=== PATIENT | female | born 1970 | race Caucasian/White ===

== ENCOUNTER 2020-11-11 18:06 | Emergency (ER) | payer OTHER ==
[~2020-11-11 18:06] MED LIST: BACTROBAN OINT22 GM EXT; NAPROSYN500 MG PO; NORCO 7.5-3251 EACH PO; OXACILLIN SODIUM2 GM IV; SYMBICORT 160-1 INHA INH; VENTOLIN HFA 66.7 GM INH
[2020-11-11 19:48] LABS: HEMOGLOBIN 12.7 gm/dl (12.3-15.3); RED BLOOD COUNT 4.12 M/UL (4.00-5.10); WHITE BLOOD COUNT 9.6 K/UL (4.5-11.0)
[2020-11-11 20:20] LABS: BUN/CREATININE RATIO 14 (0-10)
[2020-11-11] MEDS ORDERED: LASIX40 MG PO (21:52)
[2020-11-11] MEDS ORDERED: K-DUR TAB 20 M20 MEQ PO (21:52)
== END 2020-11-11 22:05 | disposition home or self-care (01) ==
LOC: ER1 18:06
PROVIDERS: Physician Assistant
DX: I50.9 Heart failure, unspecified (principal); K80.80 Other cholelithiasis without obstruction; B19.20 Unspecified viral hepatitis C without hepatic coma; F17.200 Nicotine dependence, unspecified, uncomplicated; Z90.710 Acquired absence of both cervix and uterus; Z98.51 Tubal ligation status; Z53.20 Procedure and treatment not carried out because of patient's decision for unspecified reasons
CPT/HCPCS: 71045; 80053; 80307; 81001; 82550; 82553; 83690; 83874; 83880; 84484; 85025; 93005; 96374; 99285; J1940

== ENCOUNTER 2021-10-20 15:29 | Inpatient (IN) | payer OTHER ==
[~2021-10-20] VITALS: Ht 170.2 cm; Wt 59.0 kg
[~2021-10-20 15:29] MED LIST changes: +K-DUR TAB 20 M20 MEQ PO; +LASIX40 MG PO
[2021-10-20 17:15] LABS: HEMOGLOBIN 15.1 gm/dl (12.3-15.3); RED BLOOD COUNT 4.92 M/UL (4.00-5.10); WHITE BLOOD COUNT 11.2 K/UL (4.5-11.0)
[2021-10-20 17:44] LABS: BUN/CREATININE RATIO 12 (0-10)
[2021-10-21 03:27] LABS: HEMOGLOBIN 13.5 gm/dl (12.3-15.3); RED BLOOD COUNT 4.49 M/UL (4.00-5.10)
[2021-10-21 03:46] LABS: BUN/CREATININE RATIO 13 (0-10)
--- NOTE | 2021-10-21 04:00 | NUR ---
SPOKE WITH ELECTION ASSISTANT, AZEEM, REGARDING PT HAVING ORDERS FOR PCU. ELECTION ASSISTANT STATED THAT WAS OKAY WITH PT COMING TO [facility].
--- NOTE | 2021-10-21 17:48 | NUR ---
PATIENT IS ASYMPTOMATIC BUT HAS LOW BP. 89/55. SEVERAL CHECKS WERE MADE WITH ELECTRONIC AND MANUAL BP MACHINES BEFORE PROVIDER WAS NOTIFIED FOR THE SECOND TIME. PROVIDER STATED THAT IF PATIENT WAS INDEED ASYMPTOMAIC AND WASN'T EXPERINCING AND DIZZYNESS OR LIGHTHEADEDNESS WE WOUDL JUST WATCH HER AND RECHECK IN ONE HOUR. WILL CONTINUE TO MONITOR.
--- NOTE | 2021-10-21 21:30 | NUR ---
PT BEING VERY HOSTILE WITH RN AND LAMINATED PLASTICS ASSEMBLER AND GLUER REGARDING IV PAIN MEDICATION. PT DEMANDING IV PAIN MEDICATION AND REFUSING TO TAKE TAKE SCHEDULED MEDICATIONS WITHOUT RECEIVING IV PAIN MEDICATION. INFORMED PT THAT HER BLOOD PRESSURE WAS TOO LOW TO RECEIVE IV PAIN MEDICATION.
--- NOTE | 2021-10-22 06:18 | NUR ---
PT BEING VERY HOSTILE WITH RN REGARDING IV PAIN MEDICATION. I INFORMED PT THAT I WOULD RECHECK HER BLOOD PRESSURE AND IF BLOOD PRESSURE WAS WITHIN NORMAL LIMITS I WOULD GIVE HER PAIN MEDICATION. PT BECAME VERY UPSET AND STARTED DEMANDING THAT I STOP HER IV INFUSION OF ZOSYN. PT STATING THAT IF SHE COULD NOT GET HER IV PAIN MEDICATION THEN SHE WOULD LEAVE. PT REFUSING TO ALLOW ME TO CONTINUE HER ZOSYN IV.
[2021-10-22 06:57] LABS: HEMOGLOBIN 12.7 gm/dl (12.3-15.3); RED BLOOD COUNT 4.22 M/UL (4.00-5.10)
[2021-10-22 07:02] LABS: WHITE BLOOD COUNT 5.3 K/UL (4.5-11.0)
[2021-10-23 06:10] LABS: HEMOGLOBIN 12.3 gm/dl (12.3-15.3); RED BLOOD COUNT 4.08 M/UL (4.00-5.10); WHITE BLOOD COUNT 5.9 K/UL (4.5-11.0)
[2021-10-23 06:32] LABS: BUN/CREATININE RATIO 18 (0-10)
[2021-10-23] MEDS ORDERED: ASPIRIN EC81 MG PO (11:32)
[2021-10-23] MEDS ORDERED: LISINOPRIL5 MG PO (11:32)
[2021-10-23] MEDS ORDERED: ATORVASTATIN CA10 MG PO (11:32)
[2021-10-23] MEDS ORDERED: LOPRESSOR 25 MG25 MG PO (11:32)
[2021-10-23] MEDS ORDERED: FUROSEMIDE20 MG PO (11:32)
== END 2021-10-23 13:46 | disposition home or self-care (01) | DRG 292 ==
LOC: ER1 15:29 → MED SURG 4 18:54 → CDU 18:54 → MED SURG 4 10-21 03:05
PROVIDERS: Emergency Medicine; Internal Medicine; Physician Assistant; ADMIT Internal Medicine
PROC: B24BZZ4 Ultrasonography of Heart with Aorta, Transesophageal (ICD-10-PCS; principal; 2021-10-21)
DX: I50.23 Acute on chronic systolic (congestive) heart failure (principal); E87.1 Hypo-osmolality and hyponatremia; N39.0 Urinary tract infection, site not specified; Z20.822 Contact with and (suspected) exposure to COVID-19; B18.2 Chronic viral hepatitis C; F17.200 Nicotine dependence, unspecified, uncomplicated; F12.10 Cannabis abuse, uncomplicated; E87.6 Hypokalemia; I08.1 Rheumatic disorders of both mitral and tricuspid valves; I25.5 Ischemic cardiomyopathy; J44.9 Chronic obstructive pulmonary disease, unspecified; I27.20 Pulmonary hypertension, unspecified; Z90.710 Acquired absence of both cervix and uterus; Z98.51 Tubal ligation status; Z82.49 Family history of ischemic heart disease and other diseases of the circulatory system; Z79.899 Other long term (current) drug therapy; Z91.14 Patient's other noncompliance with medication regimen; Z88.8 Allergy status to other drugs, medicaments and biological substances; Z79.82 Long term (current) use of aspirin
CPT/HCPCS: ECHO; 36415; 71045; 71046; 80048; 80053; 80307; 81001; 82550; 82553; 83036; 83540; 83550; 83605; 83735; 83874; 83880; 84100; 84439; 84443; 84484; 85025; 85027; 85379; 85652; 86140; 87040; 93005; 93306; 96374; 99285; G0378; J1650; J2270; J2405; J2543; Q9967; U0002

== ENCOUNTER 2022-05-19 21:00 | Observation (INO) | payer OTHER ==
[~2022-05-19] VITALS: Ht 170.2 cm; Wt 67.6 kg
[~2022-05-19 21:00] MED LIST changes: +ASPIRIN EC81 MG PO; +ATORVASTATIN CA10 MG PO; +FUROSEMIDE20 MG PO; +LISINOPRIL5 MG PO; +LOPRESSOR 25 MG25 MG PO
[2022-05-19 21:31] LABS: RED BLOOD COUNT 4.11 M/UL (4.00-5.10)
[2022-05-21 06:51] LABS: HEMOGLOBIN 14.3 gm/dl (12.3-15.3)
[2022-05-21 06:52] LABS: RED BLOOD COUNT 4.56 M/UL (4.00-5.10)
[2022-05-21 07:01] LABS: BUN/CREATININE RATIO 27 (0-10)
[2022-05-21] MEDS ORDERED: METOPROLOL SUCC25 MG PO (13:53)
[2022-05-21] MEDS ORDERED: BUMETANIDE1 MG PO (13:53)
[2022-05-21] MEDS ORDERED: KLOR-CON M2020 MEQ PO (13:53)
[2022-05-21] MEDS ORDERED: ALDACTONE 25MG25 MG PO (13:53)
== END 2022-05-21 15:16 | disposition home or self-care (01) ==
LOC: ER1 21:00 → M/S 05-20 00:04 → CDU 05-20 00:04 → M/S 05-20 09:34
PROVIDERS: Emergency Medicine; Internal Medicine; ADMIT Internal Medicine
DX: I11.0 Hypertensive heart disease with heart failure (principal); I50.43 Acute on chronic combined systolic (congestive) and diastolic (congestive) heart failure; I42.0 Dilated cardiomyopathy; I08.1 Rheumatic disorders of both mitral and tricuspid valves; I27.20 Pulmonary hypertension, unspecified; J44.9 Chronic obstructive pulmonary disease, unspecified; F17.210 Nicotine dependence, cigarettes, uncomplicated; F12.10 Cannabis abuse, uncomplicated; R00.0 Tachycardia, unspecified; N28.9 Disorder of kidney and ureter, unspecified; Z91.14 Patient's other noncompliance with medication regimen; Z86.79 Personal history of other diseases of the circulatory system; Z82.49 Family history of ischemic heart disease and other diseases of the circulatory system; Z79.82 Long term (current) use of aspirin; Z79.899 Other long term (current) drug therapy; Z20.822 Contact with and (suspected) exposure to COVID-19
CPT/HCPCS: ECHO; 36415; 71045; 71046; 80048; 80053; 80307; 81001; 82550; 82553; 83880; 84439; 84443; 84484; 85025; 93005; 93306; 94640; 94664; 94760; 96372; 96374; 96375; 96376; 99285; G0378; J1160; J1650; U0002

== ENCOUNTER 2022-06-06 12:52 | Inpatient (IN) | payer OTHER ==
[~2022-06-06] VITALS: Ht 170.2 cm; Wt 76.5 kg
[~2022-06-06 12:52] MED LIST changes: +ALDACTONE 25MG25 MG PO; +BUMETANIDE1 MG PO; +KLOR-CON M2020 MEQ PO; +METOPROLOL SUCC25 MG PO
[2022-06-06 13:58] LABS: RED BLOOD COUNT 3.91 M/UL (4.00-5.10); WHITE BLOOD COUNT 8.8 K/UL (4.5-11.0)
[2022-06-06 14:21] LABS: BUN/CREATININE RATIO 24 (0-10)
[2022-06-07 06:21] LABS: HEMOGLOBIN 13.6 gm/dl (12.3-15.3)
[2022-06-07 06:51] LABS: RED BLOOD COUNT 4.4 M/UL (4.00-5.10); WHITE BLOOD COUNT 14.2 K/UL (4.5-11.0)
[2022-06-08 07:39] LABS: HEMOGLOBIN 12.1 gm/dl (12.3-15.3); WHITE BLOOD COUNT 13.6 K/UL (4.5-11.0)
[2022-06-08 07:43] LABS: RED BLOOD COUNT 3.93 M/UL (4.00-5.10)
[2022-06-09 06:44] LABS: HEMOGLOBIN 13.2 gm/dl (12.3-15.3); RED BLOOD COUNT 4.18 M/UL (4.00-5.10); WHITE BLOOD COUNT 12.5 K/UL (4.5-11.0)
[2022-06-09 17:06] LABS: BUN/CREATININE RATIO 46 (0-10)
--- NOTE | 2022-06-09 19:08 | NUR ---
PT HAS HAD SEVERAL RUNS OF NSVT THROUGHOUT THE DAY. DR. MORRIS NOTIFIED AND MADE AWARE OF THE PTS CONDITION. ALSO NOTIFIED THAT THE PT HAS BEEN VERY LETHARGIC AND SEVERAL TIMES TODAY UNABLE TO HOLD HER EYES OPEN AND SPEAK IN SENTENCES. PT ALSO FREQUENTLY PULLS AT HER OXYGEN, TELE MONITOR AND PULSE OX. PT OXYGEN DROPPED TO 44% WHEN SHE AMBULATED TO THE BATHROOM WITHOUT HER OXYGEN. OXYGEN REAPPLIED AND PT IS NOW SATING IN THE UPPER 90'S. WILL CONTINUE TO MONITOR BUT ADVISED THE PT TO NOT REMOVE HER TELE MONITOR THIS IS THE BEST WAY FOR US TO MONITOR HER CONDITION.
[2022-06-10 08:16] LABS: HEMOGLOBIN 11.9 gm/dl (12.3-15.3); RED BLOOD COUNT 3.79 M/UL (4.00-5.10)
[2022-06-10 08:42] LABS: BUN/CREATININE RATIO 30 (0-10)
--- NOTE | 2022-06-10 19:14 | NUR ---
PT HAS NOT LEFT THE FLOOR INSTRUCTED DUE TO HER NSVT. PT IS NONCOMPLIANT WITH TELE AND PULSE OX. PT FREQUENTLY REMOVES HER OXYGEN AND DESATS VERY QUICKLY. PT HAS BEEN ADVISED TO LEAVE HER OXYGEN IN PLACE AND DO NOT REMOVE TELE AND PULSE OX. WILL CONTINUE TO MONITOR.
[2022-06-11 09:51] LABS: HEMOGLOBIN 11.8 gm/dl (12.3-15.3); RED BLOOD COUNT 3.82 M/UL (4.00-5.10); WHITE BLOOD COUNT 10.2 K/UL (4.5-11.0)
[2022-06-11 10:18] LABS: BUN/CREATININE RATIO 23 (0-10)
--- NOTE | 2022-06-11 10:48 | NUR ---
PATIENT OXYGEN SATS 76% ON ROOM AIR.
[2022-06-12 07:14] LABS: HEMOGLOBIN 10.9 gm/dl (12.3-15.3); RED BLOOD COUNT 3.52 M/UL (4.00-5.10)
[2022-06-12 07:15] LABS: BUN/CREATININE RATIO 20 (0-10)
[2022-06-12 07:58] LABS: WHITE BLOOD COUNT 6.3 K/UL (4.5-11.0)
[2022-06-12] MEDS ORDERED: JARDIANCE10 MG PO (12:05)
[2022-06-12] MEDS ORDERED: ASPIRIN EC81 MG PO (12:05)
[2022-06-12] MEDS ORDERED: METOPROLOL SUCC50 MG PO ×2 (12:05→13:07)
[2022-06-12] MEDS ORDERED: TYLENOL325 MG PO (12:32)
[2022-06-12] MEDS ORDERED: ZOFRAN 4 MG TAB4 MG PO (12:32)
[2022-06-12] MEDS ORDERED: AMOXICILLIN875 MG PO (12:32)
[2022-06-12] MEDS ORDERED: DOXYCYCLINE HY100 M2 PO (12:32)
[2022-06-12] MEDS ORDERED: COMBIVENT RESPIM4 GM INH (13:17)
== END 2022-06-12 14:57 | disposition home or self-care (01) | DRG 291 ==
LOC: ER1 12:52 → M/S 16:07 → CDU 16:07 → M/S 16:07
PROVIDERS: Emergency Medicine; Internal Medicine; Internal Medicine Nephrology; Physician Assistant; ADMIT Internal Medicine
DX: I11.0 Hypertensive heart disease with heart failure (principal); I50.23 Acute on chronic systolic (congestive) heart failure; J96.01 Acute respiratory failure with hypoxia; E87.1 Hypo-osmolality and hyponatremia; N17.9 Acute kidney failure, unspecified; I47.1 Supraventricular tachycardia; K44.9 Diaphragmatic hernia without obstruction or gangrene; D64.9 Anemia, unspecified; I25.10 Atherosclerotic heart disease of native coronary artery without angina pectoris; F19.10 Other psychoactive substance abuse, uncomplicated; F17.200 Nicotine dependence, unspecified, uncomplicated; I08.1 Rheumatic disorders of both mitral and tricuspid valves; Z20.822 Contact with and (suspected) exposure to COVID-19; I42.0 Dilated cardiomyopathy; E87.5 Hyperkalemia; M79.642 Pain in left hand; I27.20 Pulmonary hypertension, unspecified; B18.2 Chronic viral hepatitis C; R63.1 Polydipsia; Z79.899 Other long term (current) drug therapy; Z90.710 Acquired absence of both cervix and uterus; Z98.890 Other specified postprocedural states; Z98.51 Tubal ligation status; Z82.49 Family history of ischemic heart disease and other diseases of the circulatory system; Z91.14 Patient's other noncompliance with medication regimen; Z99.81 Dependence on supplemental oxygen
CPT/HCPCS: 36415; 36600; 71045; 80048; 80053; 80307; 82550; 82553; 82803; 83605; 83690; 83735; 83880; 84439; 84443; 84484; 85025; 85027; 85379; 87040; 93005; 93970; 96374; 96376; 99285; G0378; J2270; J2405; Q9967; U0002

== ENCOUNTER 2022-07-12 17:35 | Inpatient (IN) | payer OTHER ==
[~2022-07-12] VITALS: Ht 170.2 cm; Wt 64.8 kg
[~2022-07-12 17:35] MED LIST changes: +AMOXICILLIN875 MG PO; +COMBIVENT RESPIM4 GM INH; +DOXYCYCLINE HY100 M2 PO; +JARDIANCE10 MG PO; +METOPROLOL SUCC50 MG PO; +TYLENOL325 MG PO; +ZOFRAN 4 MG TAB4 MG PO
[2022-07-12 18:30] LABS: HEMOGLOBIN 15.1 gm/dl (12.3-15.3); RED BLOOD COUNT 4.86 M/UL (4.00-5.10); WHITE BLOOD COUNT 8.6 K/UL (4.5-11.0)
[2022-07-13 04:36] LABS: WHITE BLOOD COUNT 7.8 K/UL (4.5-11.0)
[2022-07-13 04:49] LABS: HEMOGLOBIN 12.2 gm/dl (12.3-15.3); RED BLOOD COUNT 3.96 M/UL (4.00-5.10)
[2022-07-13] MEDS ORDERED: COMBIVENT RESPIM4 GM INH (09:19)
[2022-07-14 05:20] LABS: HEMOGLOBIN 11.5 gm/dl (12.3-15.3); RED BLOOD COUNT 3.72 M/UL (4.00-5.10); WHITE BLOOD COUNT 7.2 K/UL (4.5-11.0)
--- NOTE | 2022-07-15 10:06 | NUR ---
0950: PATIENT RETURNED FROM [facility] IN STABLE CONDITION. DOPAMINE AT 2.5 AND NORMAL SALINE RUNNING AT 32ML/HR. TR BAND IN PLACE, SHEATH SITE IS PINK AND NO SIGNS OF A HEMATOMA PRESENT. PATIENT DENIES CHEST PAIN OR SHORTNESS OF AIR.
== END 2022-07-15 18:45 | disposition left against medical advice (07) | DRG 280 ==
LOC: ER1 17:35 → CCU 20:52 → CDU 20:52 → CCU 07-13 00:51 → PROG CARE 07-15 14:52
PROVIDERS: Emergency Medicine; Internal Medicine Nephrology; Internal Medicine Pulmonary Disease; ADMIT Student in an Organized Health Care Education/Training Program
PROC: 4A023N7 Measurement of Cardiac Sampling and Pressure, Left Heart, Percutaneous Approach (ICD-10-PCS; principal; 2022-07-15)
PROC: B2111ZZ Fluoroscopy of Multiple Coronary Arteries using Low Osmolar Contrast (ICD-10-PCS; 2022-07-15)
DX: I13.0 Hypertensive heart and chronic kidney disease with heart failure and stage 1 through stage 4 chronic kidney disease, or unspecified chronic kidney disease (principal); I21.A1 Myocardial infarction type 2; I50.23 Acute on chronic systolic (congestive) heart failure; Z20.822 Contact with and (suspected) exposure to COVID-19; R57.0 Cardiogenic shock; N17.9 Acute kidney failure, unspecified; E87.1 Hypo-osmolality and hyponatremia; I42.0 Dilated cardiomyopathy; N18.30 Chronic kidney disease, stage 3 unspecified; I48.91 Unspecified atrial fibrillation; D69.6 Thrombocytopenia, unspecified; E87.6 Hypokalemia; B19.20 Unspecified viral hepatitis C without hepatic coma; I08.1 Rheumatic disorders of both mitral and tricuspid valves; B02.9 Zoster without complications; J44.9 Chronic obstructive pulmonary disease, unspecified; R74.01 Elevation of levels of liver transaminase levels; E83.42 Hypomagnesemia; F15.10 Other stimulant abuse, uncomplicated; F17.210 Nicotine dependence, cigarettes, uncomplicated; F19.10 Other psychoactive substance abuse, uncomplicated; Z91.14 Patient's other noncompliance with medication regimen; Z71.6 Tobacco abuse counseling; Z79.01 Long term (current) use of anticoagulants; Z79.82 Long term (current) use of aspirin; Z82.49 Family history of ischemic heart disease and other diseases of the circulatory system; Z98.51 Tubal ligation status; Z90.710 Acquired absence of both cervix and uterus
CPT/HCPCS: 36415; 36556; 36600; 71045; 76705; 80048; 80053; 80061; 80076; 80307; 81001; 82550; 82553; 82570; 82803; 82962; 83605; 83735; 83880; 84100; 84132; 84133; 84156; 84300; 84439; 84443; 84484; 85025; 85610; 85730; 86140; 87040; 87086; 93005; 94640; 94664; 94760; 96374; 96375; 99152; 99153; 99285; C1769; C1894; J1265; J1644; J1650; J1940; J2250; J2270; J2405; J2543; J3010; J3475; J3480; J7030; J7040; J7050; Q9965; Q9967; U0002

== ENCOUNTER 2022-07-22 00:44 | Emergency (ER) | payer OTHER ==
[2022-07-22 02:39] LABS: HEMOGLOBIN 10.9 gm/dl (12.3-15.3); RED BLOOD COUNT 3.49 M/UL (4.00-5.10); WHITE BLOOD COUNT 5.9 K/UL (4.5-11.0)
[2022-07-22 03:00] LABS: BUN/CREATININE RATIO 21 (0-10)
== END 2022-07-22 06:45 | disposition home or self-care (01) ==
LOC: ER1 00:44
PROVIDERS: Emergency Medicine
DX: R60.0 Localized edema (principal); I11.0 Hypertensive heart disease with heart failure; I50.9 Heart failure, unspecified; J44.9 Chronic obstructive pulmonary disease, unspecified
CPT/HCPCS: 71045; 80053; 83880; 84484; 85025; 86140; 93005; 99284

== ENCOUNTER 2022-07-25 20:06 | Emergency (ER) | payer OTHER ==
[2022-07-25 23:05] LABS: HEMOGLOBIN 12.5 gm/dl (12.3-15.3); RED BLOOD COUNT 4.03 M/UL (4.00-5.10)
[2022-07-25 23:40] LABS: BUN/CREATININE RATIO 15 (0-10)
[2022-07-25] MEDS ORDERED: PERCOCET 5-3251 EACH PO (23:57)
[2022-07-25] MEDS ORDERED: K-TAB ER20 MEQ PO (23:57)
[2022-07-26] MEDS ORDERED: LIDOCAINE PAIN1 EACH TOP (05:25)
[2022-07-26] MEDS ORDERED: LIDOCAINE PAIN1 EACH TP (05:27)
== END 2022-07-26 00:28 | disposition home or self-care (01) ==
LOC: ER1 20:06
PROVIDERS: Physician Assistant Medical
DX: B02.9 Zoster without complications (principal); E87.6 Hypokalemia
CPT/HCPCS: 71045; 80053; 82550; 82553; 83880; 84484; 85025; 93005; 99284

== ENCOUNTER 2022-07-26 03:43 | Emergency (ER) | payer OTHER ==
[~2022-07-26 03:43] MED LIST changes: +K-TAB ER20 MEQ PO; +PERCOCET 5-3251 EACH PO
[2022-07-26] MEDS ORDERED: LIDOCAINE PAIN1 EACH TOP (05:25)
[2022-07-26] MEDS ORDERED: LIDOCAINE PAIN1 EACH TP (05:27)
== END 2022-07-26 05:31 | disposition home or self-care (01) ==
LOC: ER1 03:43
DX: B02.9 Zoster without complications (principal)
CPT/HCPCS: 99282